=== PATIENT | female | born 1950 | race Caucasian/White ===

== ENCOUNTER 2025-07-06 09:43 | Outpatient (AMB) | payer MEDICARE, OTHER, SELFPAY ==
--- NOTE | 2025-07-06 09:53 | MHC.OFFVIS ---
Intake Visit Reasons: collapse and syncope HPI Comments Details: The patient is a 74 year old female presenting for evaluation of an episode of prolonged loss of consciousness. In February, she experienced what was termed a syncopal episode, during which she was unresponsive for almost an hour. Prior to the event, she felt nauseous and dizzy, consistent with her prior experiences of low blood sugar, and consumed a bite of pizza and some soda. After feeling like she was going to pass out, her and daughter assisted her to a couch, after which she has no memory of the event. Her family reported she had a pulse and was breathing during the episode. Her blood sugar was checked by her daughter and was 132, and by the ambulance crew it was 138; in the ER, it was 168. She awoke in the ER and, while not confused, she experienced transient difficulty communicating. The patient has a six-year history of diabetes mellitus. Her medications were recently adjusted; she was taken off Farxiga due to weight loss to 96 pounds and was started on glipizide, which caused multiple episodes of low blood sugar. At the time of the event, she was taking 1250 mg of metformin and glipizide. 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 Workup in the ER included a head CT, chest x-ray, and blood work which showed elevated lactic acid and low potassium, for which she received 2 liters of fluid and potassium supplementation. Following discharge, she developed black stools, and a home test was positive for blood, prompting a second ER visit. A subsequent workup including CT scans and an endoscopy/colonoscopy revealed colon polyps, which were removed, and negative stomach biopsies attributed to omeprazole use. This episode of unresponsiveness has not recurred. Review of Systems Narrative Constitutional:? Complain of fatigue and weight loss HEENT:? Complain of sinus problems Cardiovascular:?No chest pain, palpitations, orthopnea, PND, or leg swelling. Respiratory:?No cough, shortness of breath, wheezing, or hemoptysis. Gastrointestinal:?No nausea, vomiting, abdominal pain, diarrhea, or constipation. Genitourinary:?No dysuria, frequency, incontinence, or hematuria. Musculoskeletal:? Complain of joint pain back pain neck pain and leg cramping Neurological:? Complain of headaches Psychiatric:? Complain of anxiety Endocrine:?No heat/cold intolerance, polydipsia, polyuria, or hair/skin changes. Hematologic/Lymphatic:?No easy bruising, bleeding, or lymphadenopathy. Integumentary (Skin):? Complain of itching Allergic/Immunologic:?No seasonal allergies, hives, or recurrent infections. Physical Exam Neuro Other: Mental Status: Alert and oriented to person, place, and time. Normal attention. Normal spontaneous speech, fluency, and comprehension. No obvious issues with mood and memory. Affect is appropriate. Cranial Nerves: CN II: Visual obando full to confrontation, visual acuity intact. CN III, IV, : Pupils equal, round, reactive to light and accommodation. Extraocular movements are normal. CN V: Facial sensation is normal. CN VII: Facial movements symmetrical. CN VIII: Hearing intact to bedside conversation is normal. CN IX, X: Palate elevates symmetrically. CN XI: Shoulder shrug and head turn symmetrical. CN XII: Tongue midline without atrophy or fasciculations. Motor: Bulk and tone normal in all extremities. No significant muscle weakness in arms and legs. No drift. Reflexes: Deep tendon reflexes 1+ and symmetric. Plantar response down-going bilaterally. Coordination: [id number] is okay. Gait and Station: No obvious gait abnormality. No ataxia or instability. Extrapyramidal: Full facial expressions and blinking. No rigidity. Movements are appropriate with no tremor or abnormality. Speech: Normal; no dysarthria or tremor. Assessment & Plan Assessment & Plan (1) Syncope and collapse: Code(s): R55 - Syncope and collapse Category: Medical Plan Impression: Syncope and collapse with possibility of seizure Rec: a: EEG b: Please bring CD of brain scan done at ER I discussed with the patient that her episode of unresponsiveness was not likely caused by low blood sugar or a cardiac event, as the testing for these was normal. I explained that a seizure is a strong possibility and that we need to investigate this further. I recommended an EEG to check for abnormal brain activity. I instructed her to provide the CD of her previous brain scan for my review. I informed her of the legal requirement not to drive for six months after such an episode and advised other safety measures. Orders: Orders EEG Routine Today R55 - Syncope and collapse Coding Level of Care Code New Pt Level 4 (62225) Diagnoses Syncope and collapse R55
--- OUTSIDE RECORDS SUMMARY | 2025-07-06 10:24 | XMS_ITS | Encounter Summary ---
Author Organization [facility] [place] [address] Care Team Providers Care Consulting Services Associate Name Role Phone Daphne Khan MD Primary Care Provider [phone] Encounter Details Date Type Department Care Team (Late st Contact Info) Description 10/07/[address] [facility] [address] [place] [address] Daphne Khan MD [address] [place] [address] Social History Tobacco Use Types Packs/Day Years Used Date Smoking Tobacco: Never Smokeless Tobacco: Never Alcohol Use Standard Drinks/Week Comments No 0 (1 standard drink = 0.6 oz pur e alcohol) Housing Instability Answer Date Recorde d Are you worried that in the next 2 months you may not have stable housing? No 06/06/2024 Food Access & Nutrition Answer Date Rec orded Do you have access to a vari ety of food including fruits and vegetables? Yes 06/06/2024 Access to Healthcare Answer Date Record ed Within the last 3 months, ho w many times did you visit the emergency department for your medical care? 0 06/06/2024 Health Literacy Answer Date Recorded How often do you need to hav e someone help you when you read instructions, pamphlets, or other written material from your doctor or pharmacy? Never 06/06/2024 Caregiver: How often do you need to have someone help you when you read instructions, pamphlets, or other written material from your doctor or pharmacy? Not on file 06/06/2024 Financial Risk Answer Date Recorded How hard is it for you to pa y for the very basics like food, housing, medical care, and air conditioning / heating? Not very hard 06/06/2024 Transportation Answer Date Recorded Has the lack of transportati on kept you from meetings, work, or from getting things needed for daily living? No Has the lack of transportati on kept you from medical appointments or from getting medications? No 06/06/2024 Social Isolation Answer Date Recorded How often do you feel lonely or isolated from th ose around you? Never 06/06/2024 Food Risk Answer Date Recorded Within the past 12 months we worried whether our food would run out before we got money to buy more. Never true 06/06/2024 Within the past 12 months th e food we bought just didn't last and we didn't have money to get more. Never true 06/06/2024 Dependent Care Answer Date Recorded Do you need help finding or paying for care for your loved ones. For example, early childhood worker or elderly care for an older adult? No 06/06/2024 Education Answer Date Recorded Do you think completing more education or training, like finishing a GED, going to college, or learning a trade, would be helpful for you? No 06/06/2024 Employment and Income Answer Date Recor ded During the last four weeks, have you been actively looking for work? No 06/06/2024 Living Situation Answer Date Recorded What is your living situation? Unrecognized valu e 06/06/2024 Comments No Sex and Gender Information Value Date Recorded Sex Assigned at Not on file Legal Sex Female 1:32 PM EST Gender Identity Not on file Sexual Orientation Not on file documented as of this encounter Progress Notes * Niki Vieira, WINNIE - 10/07/2024 1:28 PM EDT Last visit with dr khan was in June , A1c had improved to 6.1 follow up is scheduled for 10/[address] khan Pt is C/O anorexia , nausea , fatigue and weight loss Pt has no chest pain or SOB, has nausea and has no appetite, she is taking po and has no issues swallowing but has no desire to eat and food smells bad denies any abd pain, had one stool that was dark last week , she is not dizzy, is very tired, no energy, she has dry skin and hair loss Pt to see gladis mercer at 3:30 documented in this encounter Plan of Treatment Upcoming Encounters Date Type Department Care Team (Late st Contact Info) Description 07/28/2025 9:00 AM EST Nutrition Internal Medicine - [place] [address] [facility] [address] [place] [id number] Kristen Mccabe, RD [address] [place] [address] 09/21/2025 9:30 AM EDT Office Visit Adult Medicine [address] [phone] Daphne Khan MD [address] [place] [address] 10/09/2025 2:30 PM EDT Appointment Radiology Department - [address] [phone] documented as of this encounter Visit Diagnoses Not on filedocumented in this encounter Additional Health Concerns Assessment Noted Time PHQ-9 Depression Total Score: 0 06/06/20 24 8:54 PM EST documented as of this encounter Care Teams Consulting Services Associate Relationship Specialty Start Date End Date Daphne Khan MD [address] [place] [address] PCP - General Internal Medicine 04/08/21 documented as of this encounter
--- OUTSIDE RECORDS SUMMARY | 2025-07-06 10:24 | XMS_ITS | Clinical Summary ---
Author Organization [facility] Address [address] [place] [address] Care Team Providers Care Network Security Administrator Name Role Phone Unknown Pcp, Non Rmg Primary Care Provider Unava ilable Medications Fluoxetine HCl 10 MG OR CAPS * 30 UNITS = 30 DAY SUPPLY * 30 06/09/2008 Active Social History Tobacco Use Types Packs/Day Years Used Date Smoking Tobacco: Never Assessed Comments Unknown Sex and Gender Information Value Date Recorded Sex Assigned at Not on file Legal Sex Female 12:51 AM EDT Gender Identity Not on file Sexual Orientation Not on file Plan of Treatment Health Maintenance Due Date Last Done Comments Hepatitis C Screening 1950 DTaP/Tdap/Td (1 - Tdap) 1968 Pneumococcal 50+ years (1 of 1 - PCV) 2000 Zoster (Shingrix) (1 of 2) 2000 Mammogram/Breast Imaging 02/07/2011 010, 02/07/2010 Bone Density 2015 COVID-19 Vaccine ( - 2024-2 6 season) 2025 Influenza (#1) 2025 RSV (1 - 1-dose 75+ series) 2025 HPV Vaccine (No Doses Required) Completed Hep A Aged Out No longer eligi ble based on patient's age to complete this topic Hep B Aged Out No longer eligi ble based on patient's age to complete this topic Hib Aged Out No longer eligi ble based on patient's age to complete this topic Meningococcal ACWY Aged Out No longer eligible based on patient's age to complete this topic Pap Smear Discontinued Zoster (Zostavax) Discontinued Care Teams Network Security Administrator Relationship Specialty Start Date End Date Unknown Pcp, Non Rmg PCP - General 05/09/13
--- OUTSIDE RECORDS SUMMARY | 2025-07-06 10:24 | XMS_ITS ---
Author Name [facility] Organization Unknown Care Team Organization Name Specialty Phone Email Start Date End Da te [facility] 02/25/2025 [facility] 05/16/2022 02/25/2024
--- OUTSIDE RECORDS SUMMARY | 2025-07-06 10:24 | XMS_ITS | Clinical Summary ---
Author Organization [facility] [address] [place] [address] [place] [phone] Phone Care Team Providers Care Continuity Tester Name Role Phone Daphne Lao MD Primary Care Provider [phone] Allergies No known active allergies Medications Lactobacillus acidophilus (PROBIOTIC ORAL) Take 1 tablet by mouth 2 (two) times a day. Buy OTC Active omeprazole (PriLOSEC) [address] capsule TAKE 1 CAPSULE BY MOUTH DAILY 90 capsule 1 09/17/19 25 Active FIBER, PSYLLIUM HUSK, ORAL Take by mouth every other day. Buy OTC Active multivitamin with minerals tablet Take 1 tablet by mouth 1 (one) time each day. Hair skin and nails OTC Active magnesium, amino acid chelate, 133 mg tablet Take 1 tablet (133 mg total) by mouth at bedtime. Magnesium glycinate 250mg Patient Buy OTC Active UNABLE TO FIND Take 2 tablets by mouth 1 (one) time each day. Hair skin and nails vitamin gummies Buy OTC Active simvastatin (ZOCOR) 20 mg tablet Take 1 tablet (20 mg total) by mouth at bedtime. at bedtime. 90 tablet 1 03/03/20 25 Active sucralfate (CARAFATE) 1 gram tablet Take 1 tablet (1 g total) by mouth 4 (four) times a day. 120 each 11 03/12/20 25 026 Active lancets 33 gauge miscIndications: DM (diabetes mellitus), type 2 with neurological complications (CMS/HCC V24, CMS/FORMERLY [facility] V28) USE 1 LANCET DAILYUSE 1 LANCET DAILY 400 each 04/03/20 Active OneTouch Ultra Test test stripIndications :DM (diabetes mellitus), type 2 with neurological complications ([facility] V24, [facility] V28) Test once dailyTest once daily 400 each 04/03/20 Active pen needle, diabetic (BD Ultra-Fine Short Pen Needle) 31 gauge x 5/16 needle Use to inject 1 times daily as directed 100 each 04/03/20 Active sertraline (ZOLOFT) 50 mg tablet TAKE 1 TABLET(50 MG) BY MOUTH 1 TIME EACH DAY 90 tablet 1 06/08/20 25 Active insulin glargine,hum.rec .anlog (Basaglar KwikPen U-100 Insulin) 100 unit/mL (3 mL) injection pen Inject 14 units sc at bedtime, go up by 4 units every week if BS above 130 on average. Max dose 30 units daily 45 mL 06/18/20 Active sertraline (ZOLOFT) 50 mg tablet Take 1 tablet (50 mg total) by mouth 1 (one) time each day. 90 tablet 1 12/10/19 25 025 Discontinued insulin glargine,hum.rec .anlog (Basaglar KwikPen U-100 Insulin) 100 unit/mL (3 mL) injection pen Inject 8 units sc at bedtime 15 mL 05/07/20 025 Discontinued(R eotoni) Active Problems Problem Noted Date Diagnosed Date Other hyperlipidemia 05/22/2024 Diabetic polyneuropathy asso ciated with diabetes mellitus due to underlying condition 09/17/2023 Assessment & Plan (06/09/2024 1:34 PM EST): Orders: Hemoglobin A1c; Future Elevated blood pressure reading 09/17/2023 Assessment & Plan (06/09/2024 1:34 PM EST): Other acute recurrent sinusitis 06/07/2023 Overview (04/13/2024): Please see note June 07, 2023 Cervical spine disease 09/11/2022 Overview (04/13/2024): Spondylosis, DJD, spinal stenosis, MRI July 2021 Adjustment disorder with mixed anxiety and depre ssed mood 04/14/2019 Chronic idiopathic granulomatous disease 018 Gastroesophageal reflux disease without esophagi tis 05/14/2018 Pulmonary nodules 05/14/2018 Scarring of lung 05/14/2018 Functional dyspepsia 02/12/2018 Cataract 05/30/2017 Type 2 diabetes mellitus with cataract 7 Peripheral neuropathy 05/30/2017 Overview (04/13/2024): feet Parotid nodule 10/24/2016 Overview (10/07/2024): Rpt scan in 2018 showed: Interval decrease in size of the 2 lesions within or adjacent to the right parotid gland, most likely representing lymph nodes. Pt had subsequent ENT f/u. 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 Migraine with aura 05/17/2005 Raynaud's syndrome 05/17/2005 Encounters Date Type Department Care Team Description 06/18/2025 5:00 PM EST Office Visit Endocrinology [id number] [place] [phone] Pam Perez PA DM (diabetes mellitus), type 2 with neurological complications (CMS/HCC V24, CMS/HCC V28) (Primary Dx) 05/08/2025 Results Follow-Up Adult Medicine [facility] [address] [place], [place] [phone] Radha Alexander NP 05/07/2025 10:25 AM EDT Lab Draw Station [address] Type 2 diabetes mellitus with cataract ([facility] V24, [facility] V28) 05/07/2025 9:30 AM EDT Office Visit [address] [phone] Pam Perez PA DM (diabetes mellitus), type 2 with neurological complications ([facility] V24, [facility] V28) (Primary Dx) 05/06/2025 3:45 PM EDT Office Visit Adult Medicine [address] [phone] Daphne Lao MD Need for prophylactic vaccination and inoculation against influenza (Primary Dx); Diabetic polyneuropathy associated with diabetes mellitus due to underlying condition ([facility] V24, [facility] V28); Elevated blood pressure reading; History of syncope 04/09/2025 Results Follow-Up Gastroenterology - [address] [phone] Milana Sanchez MD 04/08/2025 10:28 AM EDT Anesthesia Event [facility] Endoscopy [address] [place] [phone] Eugene Stovall DO Dusza, Sara, CRNA 04/08/2025 9:38 AM EDT - 04/08/2025 11:59 PM EDT Hospital Encounter [facility] End[facility] [address] [place] [phone] Milana Sanchez MD Walsh, Michael, DO Dusza, Sara, CRNA Hx of colonic polyps; Black stool Discharge Disposition: Home or Self Care 04/06/[address] [phone] Pam Perez PA 04/06/2025 Telephone Gastroenterology - [address] [place] [phone] Milana Sanchez MD from Last 3 Months Immunizations Immunization Administration Dates Next Due H1N1 Inj Preservative Free 12/07/2009 Influenza trivalent, 0.5mL ( Fluad) 65yo and older 05/06/2025 Influenza trivalent, 0.5mL ( Fluzone High-dose) 65yo and older 04/10/2022,05/25/2021,04/06/2020,03/19,04/01/2018,03/26/2017 Influenza trivalent, with pr eservative (Fluzone; Afluria) 6mo and older 06/30/2016,05/17/2015,06/17/2014,05/07,04/19/2012,03/14/2011,06/08/2006 PPD Test 01/06/2010 Pfizer SARS-CoV-2 COVID-19, mRNA, LNP-S, preservative free 12/21/2021,06/10/2021 Pneumococcal conjugate 13 va lent (Prevnar 13, PCV13) 2mo and older 06/30/2016 Pneumococcal polysaccharide 23 valent (Pneumovax 23) 2yo and older 10/18/2017 Td Tetanus diptheria (Tdvax) 7yo and older 02/22/2017,08/09/2003 Tdap Tetanus diptheria acell ular pertussis (Boostrix; Adacel) 7yo and older 11/27/2006 Zoster Live 06/17/2013 Surgical History Surgery Date Site/Laterality Comments TONSILLECTOMY PROCEDURE: HISTORICAL TONSILLECTOMY OTHER SURGICAL HISTORY PROCEDURE: HISTORICAL GLAUCOMA; COMMENT: surgery for narrow angle CATARACT EXTRACTION 08/18/2015 PROCEDURE: HISTORICAL CATARACT REMOVAL; COMMENT: left eye TUBAL LIGATION PROCEDURE: HISTORICAL TUBAL LIGATION COLONOSCOPY 03/17/2014 PROCEDURE: HISTORICAL COLONOSCOPY; COMMENT: incomplete to 40 cm COLONOSCOPY 10/03/2006 PROCEDURE: HISTORICAL COLONOSCOPY; COMMENT: Negative/incomplete colonoscopy to 40 cm. UPPER GASTROINTESTINAL ENDOSCOPY 05/11/2008 PROCEDURE: VT UPPER GI ENDOSCOPY PERFORMED; COMMENT: Normal. UPPER GASTROINTESTINAL ENDOSCOPY 12/31/2017 PROCEDURE: VT UPPER GI ENDOSCOPY PERFORMED; COMMENT: normal on ranitidine rx. OTHER SURGICAL HISTORY PROCEDURE: HISTORICAL MELANOMA COLONOSCOPY 02/16/2020 PROCEDURE: HISTORICAL COLONOSCOPY; COMMENT: Diverticulosis sigmoid colon; 5 mm ascending colon polyp; otherwise negative examination to the cecum. Pathology = tubular adenoma. OTHER SURGICAL HISTORY 09/06/2022 Right PROCEDURE: VT EXCISION NAIL MATRIX PERMANENT REMOVAL; COMMENT: right hallux medial border by Dr. 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 DX:Hyperchy lomicronemia Anxiety DX:Anxiety Actinic keratoses 05/19/2016 DX:Actinic ker atoses History of radiation therapy DX: History of radiation therapy; COMMENT: as infant for enlarged thyroid DM (diabetes mellitus), type 2 with neurological complications ([facility] V24, [facility] V28) 07/31/2016 DX:DM (diabetes mellitus), t ype 2 with neurological complications (HCC) Abnormal stress ECG 01/07/2015 DX:Abnormal stress ECG Allergic rhinitis 12/03/2007 DX:Allergic rh initis Chronic sinusitis 12/13/2010 DX:Chronic sin usitis; COMMENT: Dr Mejia; felt to be allergy-related History of basal cell carcinoma 05/19/2016 DX:History of basal cell carcinoma; COMMENT: BCC 05/24 back/right shoulder (nodular) GERD (gastroesophageal reflux disease) 04/01/2008 DX:GERD (gastroesophageal reflux disease) Occasional tremors 12/16/2012 DX:Occasional tremors Parotid nodule 10/24/2016 DX:Parotid nodul e Thyroid nodule 07/19/2016 DX:Thyroid nodul e Depression 01/02/2014 DX:Depression Osteopenia 06/17/2014 DX:Osteopenia Cataract 05/30/2017 DX:Cataract Type 2 diabetes mellitus wit h cataract ([facility] V24, [facility] V28) 05/30/2017 DX:Type 2 diabetes mellitus with cataract ([facility]) Peripheral neuropathy 05/30/2017 DX:Periphe ral neuropathy; COMMENT: feet Functional dyspepsia 02/12/2018 DX:Function al dyspepsia History of actinic keratoses 05/19/2016 DX: History of actinic keratoses; COMMENT: Actinic keratoses 05/24 right forearm (transected atypical squamous proliferation, hypertrophic AK at least .... Final path results after surgery showed biopsy site scar negative for residual neoplasm) Abnormal Pap smear of cervix Varicella Anemia Family History Medical History Relation Name Comments Alcohol abuse Brother 1 Noel P. Disley Alcohol/Drug Brother 1 Noel P. Disley Cancer Brother 1 Noel P. Disley Hyperlipidemia Brother 1 Noel P. Disley Lung disease Brother 1 Noel P. Disley Mental illness Brother 1 Noel P. Disley Alcohol/Drug Brother 2 Other: Barretts esophagus Brother 2 Heart disease Father Suhail Ruelas Hyperlipidemia Father Suhail Ruelas Prostate cancer Father Suhail Ruelas Arthritis Maternal Grandfather Cancer Maternal Grandmother Mikaela Roberson Other Dermatological Disorders Maternal Grandmother Mikaela Roberson Skin cancer ,specifics unknown....nonmelanot ic by description Arthritis Mother Ava P. Disley Skin cancer ,specifics unknown...nonmelanoti c by description Cancer Mother Ava P. Disley Dementia Mother Ava P. Disley Heart disease Mother Ava P. Disley Hyperlipidemia Mother Ava P. Disley Mental illness Mother Ava P. Disley Other: skin cancer Mother Ava P. Disley Hyperlipidemia Sister Lory Kaur Alcohol abuse Son 1 Catalino P. Temple Cancer Son 1 Catalino P. Temple Inflammatory bowel disease Son 1 Catalino P. Temple Melanoma Son 1 Catalino P. Temple Mental illness Son 1 Catalino P. Temple Cancer Son 2 Osman Bruce Breast cancer Neg Hx Colon cancer Neg Hx Ovarian cancer Neg Hx Relation Name Status Comments Brother 1 Noel P. Disley Brother 2 Father Suhail Ruelas CAD Maternal Grandfather Maternal Grandmother Mikaela Roberson skin cancer Mother Ava P. Disley Alive skin canc er Sister Lory Kaur Son 1 Catalino Ji. Temple Alive Son 2 Osman Bruce Social History Tobacco Use Types Packs/Day Years Used Date Smoking Tobacco: Never Smokeless Tobacco: Never Tobacco Cessation:Counseling Given: Not Answered Alcohol Use Standard Drinks/Week Comments No 0 [...] Record ed Within the last 3 months, daren huang many times did you visit the emergency [...] care for your loved ones. For example, child care team lead or elderly care for an older adult? [...] your living situation? Unrecognized valu e 06/06/2024 Interpersonal Safety Answer Date Record ed Physical Abuse Unrecognized value 04/08/2025 Verbal Abuse Unrecognized value 04/08/2025 Comments No Sex and Gender Information Value Date Recorded Sex Assigned at Not on file Legal Sex Female 1:32 PM EST Gender Identity Not on file Sexual Orientation Not on file Obstetrics History Para Term AB IAB SAB Ectopic Multiple Livin g Live Births 5 5 3 2 3 3 Date Outcome GA Total Labor Labor/2nd/3rd Weight Sex Type Anes PTL Jeana A1 A5 Name Clin Term Vag-S pont Living Term Term Vag-S pont Living Vag-S pont Living Last Filed Vital Signs Vital Sign Reading Time Taken Comments Blood Pressure 134/64 06/18/2025 5:05 PM EST Pulse 74 06/18/2025 5:05 PM EST Temperature 36.2 C (97.1 F) 05/07/2025 9:37 AM EDT Respiratory Rate 14 05/06/2025 3:49 PM EDT Oxygen Saturation 100% 04/08/2025 11:11 AM EDT Inhaled Oxygen Concentration - - Weight 50.4 kg (111 lb 3.2 oz) 06/18/2025 4:59 P M EST Height 154.9 cm (5' 1 ) 05/07/2025 9:37 AM EDT Body Mass Index 21.01 05/07/2025 9:37 AM EDT Plan of Treatment Upcoming Encounters Date Type Department Care Team (Late st Contact Info) Description 07/28/2025 9:00 AM EST Nutrition Internal Medicine - [place] [address] [facility] [address] [place] [phone] Kristen Mccabe, RD [address] [place] [phone] 09/21/2025 9:30 AM EDT Office Visit Adult Medicine [place] - [address] [phone] Daphne Lao MD [address] [place] [phone] 10/09/2025 2:30 PM EDT Appointment Radiology Department - [address] [phone] Health Maintenance Due Date Last Done Comments RSV Immunization Adult Patients (1 - Risk 50-74 years 1-dose series) 2000 Zoster Vaccines (1 of 2) 08/12/2013 06/17/2013 COVID-19 Vaccine ( season) 2025 07/21/2024, 08/01/2023, 05/23/2022, Additional history exists Social Influencers of Health Screening 06/06/2025 06/06/2024 Medicare Annual Wellness Visit 06/09/2025 06/09/2024 Diabetes: Annual Urine Albumin-Creatinine Ratio (uACR) 10/09/2025 10/09/2024, 09/17/2023 Diabetes: Annual Retina Eye Exam 10/15/2025 10/15/2024, 10/10/2023 Diabetes: Blood Sugar Control Test (HGBA1C) 11/05/2025 05/07/2025, 01/28/2025, 10/07/2024, Additional history exists Diabetes: Annual Foot Exam 03/03/202603/03, 03/03/2025, 03/03/2025, Additional history exists Diabetes: Annual GFR (Glomerular Filtration Rate) 03/12/2026 03/12/2025, 03/03/2025, 10/07/2024, Additional history exists Falls Risk Assessment 04/08/2026 04/08/2025 , 03/23/2025, 02/26/2025, Additional history exists Breast Cancer Screening 10/07/2026 10/08/19, 10/04/2023, 11/20/2022, Additional history exists DTaP,Tdap,and Td Vaccines (4 - Td or Tdap) 02/22/2027 02/22/2017, 11/27/2006, 08/09/2003 Cholesterol Screening (Lipid Panel) 09/16/2028 09/17/2023 Colorectal Cancer Screening: Colonoscopy 04/08/2030 04/08/2025, 02/16/2020 Osteoporosis Screening (Bone Density Screening) 05/21/2033 05/21/2023, 11/23/2020, 04/25/2017 Hepatitis C Screening Completed 06/17/2009 Pneumococcal Vaccine: 50+ Years Completed 10/18/2017, 06/30/2016 Depression Screening Completed 03/18/2025, 06/07/20 Influenza Vaccine Completed 05/06/2025, , 03/25/2024, Additional history exists HIB Vaccines Aged Out No longer eligi ble based on patient's age to complete this topic HPV Vaccines Aged Out No longer eligi ble based on patient's age to complete this topic Hepatitis A Vaccines Aged Out No long er eligible based on patient's age to complete this topic Hepatitis B Vaccines Aged Out No long er eligible based on patient's age to complete this topic IPV Vaccines Aged Out No longer eligi ble based on patient's age to complete this topic MMR Vaccines Aged Out No longer eligi ble based on patient's age to complete this topic Meningococcal ACWY Vaccine Aged Out N o longer eligible based on patient's age to complete this topic Meningococcal B Vaccine Aged Out No l onger eligible based on patient's age to complete this topic RSV Immunization Patients Under 20 months Aged Out No longer eligible based on patient's age to complete this topic Varicella Vaccines Aged Out No longer eligible based on patient's age to complete this topic Goals Goal Patient Goal Type Associated Problems Recent Progress Patient-Stated? Author Autogenera francesco Goal Care Plan Autogenerated Problem No Lula Contreras Procedures Procedure Name Priority Date/Time Associated Diagnosis Comments HEMOGLOBIN A1C Routine 05/07/2025 10:26 AM EDT Type 2 diabetes mellitus with cataract ([facility] V24, [facility] V28) COLONOSCOPY Routine 04/08/2025 10:50 AM EDT Hx of colonic polyps Black stool EGD Routine 04/08/2025 10:50 AM EDT Hx of colonic polyps Black stool TISSUE EXAM Routine 04/08/2025 10:34 AM EDT Hx of colonic polyps Black stool COMPREHENSIVE METABOLIC PANEL STAT 03/12/2025 8:49 AM EDT EXTERNAL DIABETIC RETINA EYE EXAM 10/15/2024 MICROALBUMIN CREATININE URINE RATIO Routine 10/09/2024 4:17 PM EDT Nausea MG MAMMO DIGITAL SCREENING W UD BILAT Routine 10/07/2024 2:38 PM EDT Encounter for screening mammogram for breast cancer HM DIABETES FOOT EXAM Routine 03/25/2024 LIPID PANEL Routine 09/17/2023 DEPRESSION SCREENING Routine 06/07/2023 FALLS RISK ASSESSMENT Routine 06/07/2023 DXA BONE DENSITY STUDY 1+ SITS AXIAL SKEL Routine 05/21/2023 11:30 AM EST Asymptomatic menopausal state HEPATITIS C SCREENING Routine 06/17/2009 from Last 3 Months or Most Recently Relevant to Health Maintenance Results * (ABNORMAL) Hemoglobin A1c (05/07/2025 10:26 AM EDT) Hemoglobin A1C 7.2(H) <6.5 % LAB CHEMISTRY METHOD 05/07/2025 1:14 PM EDT [facility] Mean Bld Glu Estim. 160 mg/dL LAB CHEMISTRY METHOD 05/07/2025 1:14 PM EDT [facility] Blood Venous blood specimen / Unknown Venipuncture / Unknown 05/07/2025 10:26 AM EDT 05/07/2025 10:26 AM EDT us Daphne Lao MD LAB BLOOD ORDERABLES Final Resul t [facility] [address] [place] [address], * COLONOSCOPY Anesthesia - MAC; [facility] (04/08/2025 10:50 AM EDT) Anatomical Region Laterality Modality Endoscopy 04/08/2025 10:3 7 AM EDT Impressions 04/08/2025 10:51 AM EDT - The examined portion of the ileum was normal. - One 3 mm polyp in the ascending colon, removed with a cold snare. Resected and retrieved. - One 3 mm polyp in the descending colon, removed with a cold snare. Resected and retrieved. - Diverticulosis in the sigmoid colon. - Internal hemorrhoids. - The examination was otherwise normal. Recommendation: - Await pathology results. - Repeat colonoscopy for surveillance based on pathology results. Narrative 04/08/2025 10:51 AM EDT [facility] GI Patient Name: Emerald Handley Procedure Date: 04/08/2025 10:37 AM Date of : 1950 Age: 74 Gender: Female Note Status: Finalized Attending MD: Milana Sanchez MD, Procedure Date No Time: 04/08/2025 Procedure: Colonoscopy Indications: High risk colon cancer surveillance: Personal history of non-advanced adenoma Providers: Milana Sanchez MD Referring MD: Milana Sanchez MD, Daphne Lao MD Medicines: Propofol per Anesthesia Complications: No immediate complications. Estimated Blood Loss: Estimated blood loss: none. Procedure: Pre-Anesthesia Assessment: - ASA Grade Assessment: II - A patient with mild systemic disease. After I obtained informed consent, the scope was passed under direct vision. Throughout the procedure, the patient's blood pressure, pulse, and oxygen saturations were monitored continuously.The Olympus Pediatric Colonosocpe was introduced through the anus and advanced to the terminal ileum. The colonoscopy was performed without difficulty. The patient tolerated the procedure well. The quality of the bowel preparation was excellent. Findings: The perianal and digital rectal examinations were normal. The terminal ileum appeared normal. A 3 mm polyp was found in the ascending colon. The polyp was sessile. The polyp was removed with a cold snare. Resection and retrieval were complete. A 3 mm polyp was found in the descending colon. The polyp was sessile. The polyp was removed with a cold snare. Resection and retrieval were complete. A few medium-mouthed diverticula were found in the sigmoid colon. Internal hemorrhoids were found during retroflexion. The hemorrhoids were Grade II (internal hemorrhoids that prolapse but reduce spontaneously). The exam was otherwise without abnormality. Procedure Code(s): --- Professional --- 71814, Colonoscopy, flexible; with removal of tumor(s), polyp(s), or other lesion(s) by snare technique Diagnosis Code(s): --- Professional --- Z86.010, Personal history of colonic polyps D12.2, Benign neoplasm of ascending colon D12.4, Benign neoplasm of descending colon CPT copyright 2020 [employer]. All rights reserved. The codes documented in this report are preliminary and upon stunner and shackler review may be revised to meet current compliance requirements. Milana Sanchez MD 04/08/2025 10:51:47 AM This report has been signed electronically.Milana Sanchez MD Number of Addenda: 0 Note Initiated On: 04/08/2025 10:37 AM Scope In: Scope Out: Endoscopy Department at [facility] - [address] [place] [id number] Procedure Note Milana Sanchez MD - 04/08/2025 [facility] GI Patient Name: Emerald Handley Procedure Date: 04/08/2025 10:37 AM Date of : 1950 Age: 74 Gender: Female Note Status: Finalized Attending MD: Milana Sanchez MD, Procedure Date No Time: 04/08/2025 Procedure: Colonoscopy Indications: High risk colon cancer surveillance: Personalhistory of non-advanced adenoma Providers: Milana Sanchez MD Referring MD: Milana Sanchez MD, Daphne Lao MD Medicines: Propofol per Anesthesia Complications: No immediate complications. Estimated Blood Loss: Estimated blood loss: none. Procedure: Pre-Anesthesia Assessment: - ASA Grade Assessment: II - A patient with mild systemic disease. After I obtained informed consent, the scope was passed under direct vision. Throughout theprocedure, the patient's blood pressure, pulse, and oxygen saturations were monitored continuously.The Olympus Pediatric Colonosocpe was introduced through theanus and advanced to the terminal ileum. The colonoscopy was performed without difficulty. The patient tolerated the procedure well. The quality of thebowel preparation was excellent. Findings: The perianal and digital rectal examinations were normal. The terminal ileum appeared normal. A 3 mm polyp was found in the ascending colon. The polyp was sessile. The polyp was removed with acold snare. Resection and retrieval were complete. A 3 mm polyp was found in the descending colon. The polyp was sessile. The polyp was removed with acold snare. Resection and retrieval were complete. A few medium-mouthed diverticula were found in the sigmoid colon. Internal hemorrhoids were found duringretroflexion. The hemorrhoids were Grade II (internal hemorrhoids that prolapse but reduce spontaneously). The exam was otherwise without abnormality. Procedure Code(s): --- Professional --- 65807, Colonoscopy, flexible; with removal of tumor(s), polyp(s), or other lesion(s) by snare technique Diagnosis Code(s): --- Professional --- Z86.010, Personal history of colonic polyps D12.2, Benign neoplasm of ascending colon D12.4, Benign neoplasm of descending colon CPT copyright 2020 [employer]. All rights reserved. The codes documented in this report are preliminary and upon stunner and shackler reviewmay be revised to meet current compliance requirements. Milana Sanchez MD 04/08/2025 10:51:47 AM This report has been signed electronically.Milana Sanchez MD Number of Addenda: 0 Note Initiated On: 04/08/2025 10:37 AM Scope In: Scope Out: Endoscopy Department at [facility] - [address] [place] [phone] IMPRESSION: - The examined portion of the ileum was normal. - One 3 mm polyp in the ascending colon, removedwith a cold snare. Resected and retrieved. - One 3 mm polyp in the descending colon, removedwith a cold snare. Resected and retrieved. - Diverticulosis in the sigmoid colon. - Internal hemorrhoids. - The examination was otherwise normal. Recommendation: - Await pathology results. - Repeat colonoscopy for surveillance based on pathology results. Milana Sanchez MD GI~PROCEDURE ORDERABLES Final Result * EGD Anesthesia - MAC; [facility] (04/08/2025 10:50 AM EDT) Anatomical Region Laterality Modality Endoscopy 04/08/2025 10:2 4 AM EDT Impressions 04/08/2025 10:37 AM EDT - Normal esophagus. - Normal mucosa was found in the entire stomach. Biopsied. - Multiple fundic gland polyps. - Normal examined duodenum. Recommendation: - Await pathology results. Narrative 04/08/2025 10:37 AM EDT [facility] GI Patient Name: Emerald Handley Procedure Date: 04/08/2025 10:24 AM Date of : 1950 Age: 74 Gender: Female Note Status: Finalized Attending MD: Milana Sanchez MD, Procedure Date No Time: 04/08/2025 Procedure: Upper GI endoscopy Indications: Melena Providers: Milana Sanchez MD Referring MD: Daphne Lao MD Medicines: Propofol per Anesthesia Complications: No immediate complications. Estimated Blood Loss: Estimated blood loss: none. Procedure: Pre-Anesthesia Assessment: - ASA Grade Assessment: II - A patient with mild systemic disease. After obtaining informed consent, the endoscope was passed under direct vision. Throughout the procedure, the patient's blood pressure, pulse, and oxygen saturations were monitored continuously.The Endoscope was introduced through the mouth, and advanced to the second part of duodenum. The upper GI endoscopy was accomplished without difficulty. The patient tolerated the procedure well. Findings: The esophagus was normal. Normal mucosa was found in the entire examined stomach. Biopsies were taken with a cold forceps for histology. Multiple small sessile fundic gland polyps were found in the gastric body. The cardia and gastric fundus were normal on retroflexion. The examined duodenum was normal. Procedure Code(s): --- Professional --- 74190, Esophagogastroduodenoscopy, flexible, transoral; with biopsy, single or multiple Diagnosis Code(s): --- Professional --- K92.1, Melena (includes Hematochezia) CPT copyright 2020 [employer]. All rights reserved. The codes documented in this report are preliminary and upon stunner and shackler review may be revised to meet current compliance requirements. Milana Sanchez MD 04/08/2025 10:37:33 AM This report has been signed electronically.Milana Sanchez MD Number of Addenda: 0 Note Initiated On: 04/08/2025 10:24 AM Scope In: Scope Out: Endoscopy Department at [facility] - [address] [place] [phone] Procedure Note Milana Sanchez MD - 04/08/2025 [facility] GI Patient Name: Emerald Handley Procedure Date: 04/08/2025 10:24 AM Date of : 1950 Age: 74 Gender: Female Note Status: Finalized Attending MD: Milana Sanchez MD, Procedure Date No Time: 04/08/2025 Procedure: Upper GI endoscopy Indications: Melena Providers: Milana Sanchez MD Referring MD: Daphne Lao MD Medicines: Propofol per Anesthesia Complications: No immediate complications. Estimated Blood Loss: Estimated blood loss: none. Procedure: Pre-Anesthesia Assessment: - ASA Grade Assessment: II - A patient with mild systemic disease. After obtaining informed consent, the endoscope was passed under direct vision. Throughout theprocedure, the patient's blood pressure, pulse, and oxygen saturations were monitored continuously.TheEndoscope was introduced through the mouth, and advanced tothe second part of duodenum. The upper GI endoscopy was accomplished without difficulty. The patienttolerated the procedure well. Findings: The esophagus was normal. Normal mucosa was found in the entire examined stomach. Biopsies were taken with a cold forcepsfor histology. Multiple small sessile fundic gland polyps werefound in the gastric body. The cardia and gastric fundus were normal on retroflexion. The examined duodenum was normal. Procedure Code(s): --- Professional --- 66805, Esophagogastroduodenoscopy, flexible, transoral; with biopsy, single or multiple Diagnosis Code(s): --- Professional --- K92.1, Melena (includes Hematochezia) CPT copyright 2020 [employer]. All rights reserved. The codes documented in this report are preliminary and upon stunner and shackler reviewmay be revised to meet current compliance requirements. Milana Sanchez MD 04/08/2025 10:37:33 AM This report has been signed electronically.Milana Sanchez MD Number of Addenda: 0 Note Initiated On: 04/08/2025 10:24 AM Scope In: Scope Out: Endoscopy Department at [facility] - [address] [place] [phone] IMPRESSION: - Normal esophagus. - Normal mucosa was found in the entire stomach. Biopsied. - Multiple fundic gland polyps. - Normal examined duodenum. Recommendation: - Await pathology results. us Milana Sanchez MD GI~PROCEDURE ORDERABLES Final Result * Tissue exam (04/08/2025 10:34 AM EDT) Final Diagnosis A. Gastric, Body, biopsy: - Gastric antral mucosa with no specific pathologic changes. - Gastric oxyntic mucosa with mild parietal cell hyperplasia as seen in PPI therapy. - No Helicobacter pylori organisms are morphologically identified. B. Large Intestine, Right/Ascending Colon, polyp: - Tubular adenoma. C. Large Intestine, Left/Descending Colon, polyp: - Tubular adenoma. 04/09/2025 9:39 AM EDT [facility] at 0939 EDT Gross Description A. Gastric, Body, biopsy: Labeled biopsy gastric bod . Received in formalin are three soft, encinas-red tissue fragments ranging from 0.15 cm to 0.3 cm in greatest diameter, which are wrapped in paper and submitted in toto in one cassette, three pieces, multiple levels. B. Large Intestine, Right/Ascending Colon, polyp: Labeled polyp ascend colon . Received in formalin are two soft, encinas, polypoid tissues measuring approximately 0.25 cm in greatest diameter, which are wrapped in paper and submitted in toto in one cassette, two pieces, multiple levels. C. Large Intestine, Left/Descending Colon, polyp: Labeled polyp desc colon . Received in formalin are three soft, encinas-pink polypoid tissues measuring approximately 0.25-0.3 cm in greatest diameter, which are wrapped in paper and submitted in toto in one cassette, three pieces, multiple levels. TS 04/09/2025 9:39 AM EDT [facility] Disclaimer Unless otherwise specified, all tissue is 10% NB formalin fixed and paraffin embedded. 04/09/2025 9:39 AM T [facility] Tissue Gastric corpus structure / Unknown 04/08/2025 10:34 AM EDT 04/08/2025 11:33 AM EDT Tissue specimen (specimen) Ascending colon structure / Unknown 04/08/2025 10:44 AM EDT 04/08/2025 11:33 AM EDT Tissue specimen (specimen) Descending colon structure / Unknown 04/08/2025 10:46 AM EDT 04/08/2025 11:33 AM EDT us Milana Sanchez MD LAB PATHOLOGY ORDERABLES Final Result [facility] [address] [place] [address], [place] [phone] * (ABNORMAL) Comprehensive metabolic panel (03/12/2025 8:49 AM EDT) Sodium 136 133 - 145 mmol/L LAB CHEMISTRY METHOD 03/12/2025 9:43 AM [facility] Potassium 4.0 3.5 - 5.5 mmol/L LAB CHEMISTRY METHOD 03/12/2025 9:43 AM [facility] Chloride 103 96 - 110 mmol/L LAB CHEMISTRY METHOD 03/12/2025 9:43 AM [facility] CO2 29 21 - 32 mmol/L LAB CHEMISTRY METHOD 03/12/2025 9:43 AM [facility] Anion Gap 4 3 - 11 LAB CHEMISTRY METHOD 03/12/2025 9:43 AM [facility] Glucose 306(H) 70 - 100 mg/dL LAB CHEMISTRY METHOD 03/12/2025 9:43 AM [facility] BUN 18 5 - 25 mg/dL LAB CHEMISTRY METHOD 03/12/2025 9:43 AM [facility] Creatinine 1.05 0.50 - 1.10 mg/dL LAB CHEMISTRY METHOD 03/12/2025 9:43 AM [facility] eGFR 56(L) >=60 mL/min/1. 73m2 LAB CHEMISTRY METHOD 03/12/2025 9:43 AM [facility] Comment:Calculation based on the Chronic Kidney Disease Epidemiology Collaboration (CKD-EPI) equation refit without adjustment for race. BUN/Creatinine Ratio 17.1 LAB CHEMISTRY METHOD [facility]/12[facility]2025 [facility] Calcium 9.1 8.5 - 10.5 mg/dL LAB CHEMISTRY METHOD 03/12/2025 9:43 AM [facility] AST (SGOT) 25 10 - 42 unit/L LAB CHEMISTRY METHOD 03/12/2025 9:43 AM [facility] ALT (SGPT) 33 10 - 60 unit/L LAB CHEMISTRY METHOD 03/12/2025 9:43 AM [facility] Alkaline Phosphatase 62 42 - 121 unit/L LAB CHEMISTRY METHOD 03/12/2025 9:43 AM [facility] Total Protein 6.3 6.0 - 8.0 g/dL LAB CHEMISTRY METHOD 03/12/2025 9:43 AM [facility] Albumin 3.8 3.2 - 5.0 g/dL LAB CHEMISTRY METHOD 03/12/2025 9:43 AM [facility] Total Bilirubin 0.4 0.0 - 1.4 mg/dL LAB CHEMISTRY METHOD 03/12/2025 9:43 AM [facility] Blood Venous blood specimen / Unknown Venipuncture / Unknown 03/12/2025 8:49 AM EDT 03/12/2025 9:05 AM EDT us Caio Rider MD LAB BLOOD ORDERABLES Final Resul t [facility] [address] [place] [address], [place] [phone] * External Diabetic Retina Eye Exam Report (10/15/2024) Anatomical Region Laterality Modality Ultrasound us Provider [facility] US PROCEDURES Final Result * Microalbumin creatinine urine ratio (10/09/2024 4:17 PM EDT) Creatinine, Urine 158.0 mg/dL LAB CHEMISTRY METHOD 10/09/2024 7:49 PM EDT [facility] Microalb, Ur 11.1 0.0 - 29.0 mg/L LAB CHEMISTRY METHOD 10/09/2024 7:49 PM EDT [facility] Microalb/Creat Ratio 7 <30 mg/g creat LAB CHEMISTRY METHOD 10/09/2024 7:49 PM EDT [facility] Urine Urine specimen obtained by clean catch procedure / Unknown Non-blood Collection / Unknown 10/09/2024 4:17 PM EDT 10/09/2024 4:17 PM EDT us Chaim BEE LAB URINE ORDERABLES Fin al Result [facility] [address] [place] [address], [place] [phone] * MG Mammo Digital Screening w Du bilat (10/07/2024 2:38 PM EDT) Anatomical Region Laterality Modality Breast Bilateral Mammography 10/08/2024 8:25 AM EDT Impressions 10/08/2024 8:26 AM EDT No mammographic evidence of malignancy. BREAST DENSITY: B - There are scattered areas of fibroglandular density. BI-RADS CATEGORY: 1 - NEGATIVE RECOMMENDATION: Screening bilateral mammogram is recommended in 1 year. MAMMO LOCATION: [facility], [address] [place] [address], [id number], . -------- FINAL REPORT -------- Dictated By: Anel Cuellar Dictated Date: 10/08/2024 08:25 ET Assigned Physician: Anel Cuellar Reviewed and Electronically Signed By: Anel Cuellar Signed Date: 10/08/2024 08:26 ET Workstation ID: [id number] Transcribed By: Self Edit Transcribed Date: 10/08/2024 08:25 ET Narrative 10/08/2024 8:26 AM EDT EXAM: Screening Mammogram CLINICAL: 74 years old, Female, routine annual exam. COMPARISON: 09/26/2023 and as far back as 09/14/2020 TECHNIQUE: Bilateral MLO and CC views were obtained digitally with 3-D mammogram (digital breast tomosynthesis). Computer-aided detection was utilized in evaluation of this exam (CAD). FINDINGS: No new suspicious mass, architectural distortion, or suspicious calcifications. Procedure Note Anel Cuellar MD - 10/08/2024 EXAM: Screening Mammogram CLINICAL: 74 years old, Female, routine annual exam. COMPARISON: 09/26/2023 and as far back as 09/14/2020 TECHNIQUE: Bilateral MLO and CC views were obtained digitally with 3-Dmammogram (digital breast tomosynthesis). Computer-aided detection wasutilized in evaluation of this exam (CAD). FINDINGS: No new suspicious mass, architectural distortion, or suspiciouscalcifications. IMPRESSION: No mammographic evidence of malignancy. BREAST DENSITY: B - There are scattered areas of fibroglandular density. BI-RADS CATEGORY: 1 - NEGATIVE RECOMMENDATION: Screening bilateral mammogram is recommended in 1 year. MAMMO LOCATION: [facility], [address] [place] [address], [id number], . -------- FINAL REPORT -------- Dictated By: Anel Cuellar Dictated Date: 10/08/2024 08:25 ET Assigned Physician: Anel Cuellar Reviewed and Electronically Signed By: Anel Cuellar Signed Date: 10/08/2024 08:26 ET Workstation ID: [id number] Transcribed By: Self Edit Transcribed Date: 10/08/2024 08:25 ET Daphne Lao MD IMG BI PROCEDURES Final Result * Diabetes Foot Exam (03/25/2024) Diabetes: Annual Foot Exam ABSTRACTED Historical Provider HEALTH MAINTENANCE Final Result * (ABNORMAL) Lipid panel (09/17/2023) LDL/HDL Ratio 3 0 - 4 Triglycerides 103 0 - 150 mg/dL Cholesterol 191 0 - 200 mg/dL HDL 69 >=40 mg/dL LDL Cholesterol 102(A) 0 - 100 mg/dL Blood Venous blood specimen / Unknown Historical Provider LAB BLOOD ORDERABLES Franny l Result * Falls Risk Assessment (06/07/2023) Pathologist [facility] Falls Risk Assessment ABSTRACTED [facility] Provider HEALTH MAINTENANCE Final Result * Depression Screening (06/07/2023) Pathologist [facility] Depression Screening ABSTRACTED Historical Provider HEALTH MAINTENANCE Final Result * DXA BONE DENSITY STUDY 1+ SITS AXIAL SKEL (05/21/2023 11:30 AM EST) Anatomical Region Laterality Modality Bone Densitometr y 12/18/2022 11:1 4 AM EDT Narrative 05/21/2023 7:32 PM EST BONE DENSITY SCAN (DEXA): FINDINGS: Lumbar Spine T-score is -1.8. (SD relative to 20-29 y/o adult) Z-score is 0.4. (SD relative to age matched peers) This is considered osteopenia by WHO criteria. Left Hip T-score is -1.7. Z-score is 0.3. This is considered osteopenia by WHO criteria. Comparison exam(s): 11/23/2020. 3.1% loss of lumbar spine bone mineral density which is statistically significant at the 95% confidence level. No statistically significant change in left hip bone mineral density. IMPRESSION: IMPRESSION: Osteopenia by WHO criteria. This patient has a 10% risk of major osteoporotic fracture and a 2.0% risk of hip fracture over the next 10 years. (World Health Organization Fracture Risk Assessment) [facility] Department of Internal Medicine recommends using National Osteoporosis Foundation (NOF) guidelines in treatment decisions related to osteoporosis. NOF guidelines suggest considering treatment for postmenopausal women and men aged 50 or older presenting with the following: History of hip or vertebral fracture. T-score = -2.5 (DXA) at the femoral neck, total hip, or spine, after appropriate evaluation to exclude secondary causes. Low bone mass (T-score between -1.0 and -2.5 at the femoral neck or spine) AND a 10-year probability of a hip fracture = 3% OR a 10-year probability of a major osteoporosis-related fracture = 20% based on the [place]-adapted WHO algorithm Please note that all treatment decisions require clinical judgment and consideration of individual patient factors, including patient preferences, co-morbidities, previous drug use, risk factors not captured in the FRAX model (e.g., frailty, falls, vitamin D deficiency, increased bone turnover, interval significant decline in bone density) and possible under- or over-estimation of fracture risk by FRAX. Optional alternative screening schedule based on bernadine Calvin., [facility] July 27, 2011 for patients with osteopenia (based on hip BMD T-score) is as follows: * advanced osteopenia (T scores -2.00 to -2.49), BMD testing every year * moderate osteopenia (T scores -1.50 to -1.99), BMD testing every 5 years mild osteopenia or normal BMD (T scores -1.50 and higher), BMD testing every 15 years Procedure Note Anel Cuellar MD - 08/14/2023 BONE DENSITY SCAN (DEXA): FINDINGS: Lumbar Spine T-score is -1.8. (SD relative to 20-29 y/o adult) Z-score is 0.4. (SD relative to age matched peers) This is considered osteopenia by WHO criteria. Left Hip T-score is -1.7. Z-score is 0.3. This is considered osteopenia by WHO criteria. Comparison exam(s): 11/23/2020. 3.1% loss of lumbar spine bone mineraldensity which is statistically significant at the 95% confidence level. No statisticallysignificant change in left hip bone mineral density. IMPRESSION: IMPRESSION: Osteopenia by WHO criteria. This patient has a 10% risk of majorosteoporotic fracture and a 2.0% risk of hip fracture over the next 10 years. (World HealthOrganization Fracture Risk Assessment) [facility] Department of Internal Medicine recommendsusing National Osteoporosis Foundation (NOF) guidelines in treatment decisions related toosteoporosis. NOF guidelines suggest considering treatment for postmenopausal women and menaged 50 or older presenting with the following: History of hip or vertebral fracture. T-score = -2.5 (DXA) at the femoral neck, total hip, or spine, afterappropriate evaluation to exclude secondary causes. Low bone mass (T-score between -1.0 and -2.5 at the femoral neck or spine)AND a 10-year probability of a hip fracture = 3% OR a 10-year probability of a majorosteoporosis-related fracture = 20% based on the [place]-adapted WHO algorithm Please note that all treatment decisions require clinical judgment andconsideration of individual patient factors, including patient preferences, co- morbidities,previous drug use, risk factors not captured in the FRAX model (e.g., frailty, falls, vitaminD deficiency, increased bone turnover, interval significant decline in bone density) andpossible under- or over-estimation of fracture risk by FRAX. Optional alternative screening schedule based on bernadine Calvin., NEJMJanuary 2011 for patients with osteopenia (based on hip BMD T-score) is as follows: * advanced osteopenia (T scores -2.00 to -2.49), BMD testing every year * moderate osteopenia (T scores -1.50 to -1.99), BMD testing every 5years mild osteopenia or normal BMD (T scores -1.50 and higher), BMD testingevery 15 years Daphne Lao MD IM DXA PROCEDURES Final Result * Hepatitis C Screening (06/17/2009) [facility] Hepatitis C Screening ABSTRACTED Historical Provider HEALTH MAINTENANCE Final Result from Last 3 Months or Most Recently Relevant to Health Maintenance Additional Health Concerns Active Problems Noted Date Diagnosed Date Autogenerated Problem 04/05/2025 Insurance MEDICARE WELLPOINT Care Teams Continuity Tester Relationship Specialty Start Date End Date Daphne Lao MD [address] [place] [address] PCP - General Internal Medicine 04/08/21
--- OUTSIDE RECORDS SUMMARY | 2025-07-06 10:24 | XMS_ITS | Encounter Summary ---
Author Organization [place] [address] Care Team Providers Care Telephone Operator Chief Name Role Phone Daphne Lao MD Primary Care Provider [phone] Encounter Details Date Type Department Care Team (Late st Contact Info) Description 05/08/2025 Results Follow-Up Adult Medicine [facility] [address], [place] [phone] Radha Alexander, NICOLE [address], [place] Social History Tobacco Use Types Packs/Day Years [...] your loved ones. 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 [...] on file documented as of this encounter Plan of Treatment Upcoming Encounters Date Type Department Care Team (Late st Contact Info) Description 07/28/2025 9:00 AM EST Nutrition Internal Medicine - [place] [address] [facility] [address] [place] [address] Kristen Mccabe, RD [address] [place] [address] 09/21/2025 9:30 AM EDT Office Visit [facility] - [address] [phone] Daphne Lao MD [address] [place] [address] 10/09/2025 2:30 PM EDT Appointment Radiology Department - [address] [phone] documented as of this encounter Goals Goal Patient Goal Type Associated Problems Recent Progress Patient-Stated? Author Autogenera francesco Goal Care Plan Autogenerated Problem No Lula Contreras documented as of this encounter Visit Diagnoses Not on filedocumented in this encounter Additional Health Concerns Active Problems Noted Date Diagnosed Date Autogenerated Problem 04/05/2025 Assessment Noted Time PHQ-9 Depression Total Score: 0 10/25/19 25 8:53 PM EDT documented as of this encounter Care Teams Telephone Operator Chief Relationship Specialty Start Date End Date Daphne Lao MD [address] [place] [address] PCP - General Internal Medicine 04/08/21 documented as of this encounter
== END 2025-07-06 10:15 | disposition home or self-care (01) ==
PROVIDERS: PCP Internal Medicine; Visit Provider Psychiatry & Neurology Neurology
DX: R55 Syncope and collapse (principal)
CPT/HCPCS: 99204

== ENCOUNTER → 2025-07-06 09:43 | Outpatient (BNVA) | payer MEDICARE, OTHER, SELFPAY | PROVIDERS: PCP Internal Medicine; Visit Provider Psychiatry & Neurology Neurology | DX: R55 Syncope and collapse (principal); E11.9 Type 2 diabetes mellitus without complications | CPT/HCPCS: 99202 ==